=== PATIENT | male | born 1960 | race Caucasian/White ===

== ENCOUNTER 2023-10-24 17:28 | Inpatient (IN) | payer OTHER ==
[~2023-10-24] VITALS: Ht 177.8 cm; Wt 72.6 kg
[2023-10-24 17:31] VITALS: BP 106/79; PULSE 92; RESP 18; TEMP 98.1; O2SAT 98
[2023-10-24 18:18] LABS: BASOPHILS % (AUTO) 0.2 % (0.0-2.0); EOSINOPHILS % (AUTO) 0.2 % (0.0-4.0); HEMATOCRIT 31.7 % (36-52); HEMOGLOBIN 10.5 g/dL (12.0-18.0); LYMPHOCYTES # (AUTO) 1.1 K/uL (2.0-11.5); LYMPHOCYTES % (AUTO) 5.6 % (20.5-51.1); MEAN CORPUSCULAR HEMOGLOBIN 28 pg (27-31); MEAN CORPUSCULAR HGB CONC 33 g/dL (33-37); MEAN CORPUSCULAR VOLUME 85.5 fL (80-94); MONOCYTES # (AUTO) 1.6 K/uL (0.8-1.0); NEUTROPHILS # (AUTO) 17.3 K/uL (1.8-7.7); PLATELET COUNT (AUTO) 591 K/uL (140-450); RED BLOOD CELL COUNT(AUTO) 3.71 MIL/uL (4.20-6.10); RED CELL DISTRIBUTION WIDTH 15.2 % (11.6-13.7); WHITE BLOOD COUNT (AUTO) 20.1 K/uL (4.8-10.8)
[2023-10-24] MEDS ORDERED: POTA20LI41 PO (18:33)
[2023-10-24] MEDS ORDERED: MORP30TA63 PO (18:33)
[2023-10-24] MEDS ORDERED: FURO40TA9 PO (18:33)
[2023-10-24] MEDS ORDERED: OMEP40EC23 PO (18:33)
[2023-10-24] MEDS ORDERED: ZOLP10TA1 (18:33)
[2023-10-24] MEDS ORDERED: HYDR-4924 PO (18:33)
[2023-10-24 18:41] LABS: ALANINE AMINOTRANSFERASE 16 U/L (12-78); ALBUMIN 2.2 g/dL (3.4-5.0); ALKALINE PHOSPHATASE 163 U/L (50-136); ANION GAP 17.3 (8-16); ASPARTATE AMINOTRANSFERASE 18 U/L (15-37); CALCIUM 11.3 mg/dL (8.5-10.1); CHLORIDE 94 mmol/L (98-107); CREATININE 0.6 mg/dL (0.6-1.3); GFR ARICAN-AMERICAN 174 mL/min (>90); GFR NON ARICAN-AMERICAN 144 mL/min (>90); GLUCOSE 113 mg/dL (74-106); LIPASE 17 U/L (16-77); POTASSIUM 4.3 mmol/L (3.5-5.1); SODIUM SERUM 128 mmol/L (136-145); TOTAL BILIRUBIN 0.2 mg/dL (0.0-1.0); TOTAL PROTEIN, SERUM 6.3 g/dL (6.4-8.2); UREA NITROGEN, BLOOD 13 mg/dL (7-18)
[2023-10-24 18:42] LABS: LACTIC ACID 3.2 mmol/L (0.4-2.0)
[2023-10-24 18:52] LABS: APPEARANCE,URINE CLEAR (CLEAR); BILIRUBIN,URINE NEGATIVE (NEGATIVE); BLOOD, URINE NEGATIVE (NEGATIVE); COLOR,URINE YELLOW (YELLOW); LEUKOCYTE ESTERASE ,URINE NEGATIVE (NEGATIVE); NITRITE, URINE NEGATIVE (NEGATIVE); PROTEIN,URINE TRACE (NEGATIVE); UGLUCOSE NEGATIVE (NEGATIVE); UROBILINOGEN,URINE 0.2 EU/dL (0.2 - 1)
[2023-10-24 19:45] VITALS: O2SAT 95
[2023-10-24] MEDS ORDERED: cefTRIAXone 1,000 MG VIAL ONE (19:54)
[2023-10-24] MEDS: NACL 0.9% 2,000 ML IV ONE (20:05)
[2023-10-24] MEDS ORDERED: AZITHROMYCIN 500 MG INJ VIAL IV ONE (20:34)
[2023-10-24] MEDS: AZITHROMYCIN 500 MG in DEXTROSE 5% 250 ML IV ONE (20:45)
[2023-10-24] MEDS ORDERED: ACETAMINOPHEN 325 MG TAB PO PRN (21:15)
[2023-10-24] MEDS ORDERED: ALBUTEROL 0.083% 2.5 MG/3 ML NEBU INH PRN (21:15)
[2023-10-24] MEDS ORDERED: ONDANSETRON 4 MG/2 ML VIAL IVP PRN (21:15)
[2023-10-24 21:44] VITALS: O2SAT 95
[2023-10-24] MEDS: HYDROcodone/APAP 10/325 MG 1 TAB TAB PO PRN (21:52)
[2023-10-24 23:00] VITALS: PULSE 83; PULSE 84; RESP 17; O2SAT 98
[2023-10-24] MEDS: NACL 0.9% 1,000 ML IV SCH (23:23)
[2023-10-24] MEDS: ZOLPIDEM 5 MG TAB PO PRN (23:23)
[2023-10-25] VITALS (7 sets, daily range): BP systolic 95–116; BP diastolic 40–65; PULSE 61–84; RESP 17–18; TEMP 97.4–97.9; O2SAT 92–100
[2023-10-25 07:09] LABS: BASOPHILS # (AUTO) 0.1 K/uL (0.00-0.22); BASOPHILS % (AUTO) 0.5 % (0.0-2.0); EOSINOPHILS # (AUTO) 0.1 K/uL (0-0.4); EOSINOPHILS % (AUTO) 0.8 % (0.0-4.0); HEMATOCRIT 27.5 % (36-52); HEMOGLOBIN 9.2 g/dL (12.0-18.0); LYMPHOCYTES # (AUTO) 1.6 K/uL (2.0-11.5); LYMPHOCYTES % (AUTO) 11.5 % (20.5-51.1); MEAN CORPUSCULAR HEMOGLOBIN 29 pg (27-31); MEAN CORPUSCULAR HGB CONC 34 g/dL (33-37); MEAN CORPUSCULAR VOLUME 86.1 fL (80-94); MONOCYTES # (AUTO) 1.3 K/uL (0.8-1.0); MONOCYTES % (AUTO) 9.2 % (1.7-9.3); NEUTROPHILS # (AUTO) 10.7 K/uL (1.8-7.7); PLATELET COUNT (AUTO) 470 K/uL (140-450); RED BLOOD CELL COUNT(AUTO) 3.19 MIL/uL (4.20-6.10); WHITE BLOOD COUNT (AUTO) 13.8 K/uL (4.8-10.8)
[2023-10-25 07:30] LABS: ALBUMIN 1.8 g/dL (3.4-5.0); ANION GAP 9.3 (8-16); CALCIUM 10.5 mg/dL (8.5-10.1); CARBON DIOXIDE 27.8 mmol/L (21-32); CREATININE 0.5 mg/dL (0.6-1.3); MAGNESIUM 1.2 mg/dL (1.8-2.4); POTASSIUM 4.1 mmol/L (3.5-5.1); TOTAL BILIRUBIN 0.3 mg/dL (0.0-1.0); TOTAL PROTEIN, SERUM 5.5 g/dL (6.4-8.2)
[2023-10-25] MEDS: PANTOPRAZOLE 40 MG TABEC PO SCH (08:20)
[2023-10-25] MEDS: MORPHINE TAB ER 30 MG TABER PO SCH (08:20)
[2023-10-25] MEDS: ENOXAPARIN 40 MG/0.4 ML SYR SUBQ SCH (08:26)
[2023-10-25] MEDS: MAG SULF 2000 MG/WATER PREMIX 50 ML IV SCH (11:26)
[2023-10-25] MEDS: MORPHINE SULFATE 4 MG/ML SYR IVP PRN (12:35)
[2023-10-25] MEDS ORDERED: AZITHROMYCIN 500 MG in DEXTROSE 5% 250 ML IV SCH (21:00)
== END 2023-10-25 19:06 | disposition home or self-care (01) | DRG 149 ==
LOC: MED 17:28 → MTU 21:20
PROVIDERS: ADMIT Hospitalist; ATTEND Hospitalist
DX: R42 Dizziness and giddiness (principal); F17.210 Nicotine dependence, cigarettes, uncomplicated; G89.29 Other chronic pain; Z85.07 Personal history of malignant neoplasm of pancreas; Z85.830 Personal history of malignant neoplasm of bone
CPT/HCPCS: 36415; 71045; 80053; 81003; 82330; 83605; 83690; 83735; 84484; 85025; 87040; 87081; 93005; J0456; J0696; J1650; J2270; J3475; J7060